=== PATIENT | female | born 1975 | race Caucasian/White ===

== ENCOUNTER 2020-11-11 22:43 | Emergency (ER) | payer SELFPAY ==
[2020-11-11 23:25] LABS: #Basophils 0.1 thou/uL (0.0-0.2); #Eosinphils 0.1 thou/uL (0.0-0.7); #Lymphocytes 2.5 thou/uL (1.20-3.40); #Neutrophils 9.8 thou/uL (1.40-6.50); %Basophils 0.4 % (0.0-1.0); %Lymphocytes 18.7 % (21.0-51.0); %Monocytes 7.7 % (0.0-10.0); %Neutrophils 72.3 % (42.0-75.0); Hemoglobin 13.5 g/dL (12.0-16.0); Mean Corpuscular HGB CONC 33.8 g/dL (32.0-36.0); Mean Corpuscular Hemoglobin 32.5 pg (27.0-31.0); Mean Corpuscular Volume 96.2 fL (78.0-98.0); Mean Platelet Volume 7.3 fL (7.4-10.4); Platelet Count 324 thou/uL (130-400); RBC Distribution Width 11.9 % (11.5-14.5); Red Blood Cell (RBC) Count 4.15 mill/uL (4.20-5.40); White Blood Cell (WBC) Count 13.6 thou/uL (4.8-10.8)
[2020-11-11 23:41] LABS: ALT (SGPT) 48 U/L (8-55); AST (SGOT) 67 U/L (5-34); Albumin 4.3 g/dL (3.5-5.0); Alkaline Phosphatase 98 U/L (40-110); Anion Gap 13 mmol/L (10-20); BUN (Urea Nitrogen) 10 mg/dL (7.0-18.7); Bilirubin, Total 0.2 mg/dL (0.2-1.2); Calc. Creatinine Clearance 0 mL/min (70-130); Calcium 9.6 mg/dL (7.8-10.44); Carbon Dioxide 23 mmol/L (22-29); Chloride 103 mmol/L (98-107); Globulin 3.9 g/dL (2.4-3.5); Glucose 118 mg/dL (70-105); Potassium 4.1 mmol/L (3.5-5.1); Protein, Total 8.2 g/dL (6.0-8.3); Sodium 135 mmol/L (136-145)
[2020-11-12] MEDS ORDERED: Ketorolac Tromethamine 30 MG/ML VIAL ONE (00:07)
[2020-11-12 14:27] LABS: SARS-CoV-2 PCR by NAA Not Detected (NotDetected)
== END 2020-11-12 02:20 | disposition home or self-care (01) ==
LOC: ERS 22:43
DX: B34.9 Viral infection, unspecified (principal); Z20.822 Contact with and (suspected) exposure to COVID-19; R07.89 Other chest pain
CPT/HCPCS: 36415; 71045; 80053; 83880; 84484; 85025; 87635; 93005; 96374; J1885; U0003; U0005

== ENCOUNTER 2022-05-30 14:24 | Outpatient (CLI) | payer BC | END 2022-05-30 14:25 | disposition home or self-care (01) | LOC: CTENTCT 14:24 | PROVIDERS: ATTEND Specialist | DX: J32.9 Chronic sinusitis, unspecified (principal) | CPT/HCPCS: 70486 ==

== ENCOUNTER 2022-06-19 15:58 | Outpatient (CLI) | payer BC | END 2022-06-19 15:59 | disposition home or self-care (01) | LOC: LABBT 15:58 | PROVIDERS: ATTEND Specialist | DX: Z01.812 Encounter for preprocedural laboratory examination (principal) | CPT/HCPCS: 85014 ==

== ENCOUNTER 2022-06-21 11:36 | Day surgery (SDC) | payer BC ==
[2022-06-20 12:18] VITALS: BMI 27.1
[2022-06-21] MEDS ORDERED: Oxymetazoline HCl 0.05% (30 ML BOT) ONE ×2 (12:32→13:55)
[2022-06-21] MEDS ORDERED: Lidocaine 1% MPF 2 ML VIAL ONE (12:32)
[2022-06-21] MEDS ORDERED: EPINEPHrine 1 MG/ML AMP ONE (13:54)
[2022-06-21] MEDS ORDERED: Lidocaine 1% (PF) 30 ML VIAL ONE (13:54)
[2022-06-21] MEDS ORDERED: Fentanyl 100 MCG/2 ML VIAL ONE ×3 (13:54→16:11)
[2022-06-21] MEDS ORDERED: Bacitracin Zinc Ointment 30 gm TUBE ONE (13:55)
[2022-06-21] MEDS ORDERED: SUGAMMADEX SODIUM 200 MG/2 ML VIAL ONE (13:58)
[2022-06-21] MEDS ORDERED: Ferric Subsulfate (ASTRINGYN) 8 GM VIAL ONE (13:59)
[2022-06-21] MEDS ORDERED: Rocuronium Bromide 10 MG/ML (10ML VIAL) ONE (14:37)
[2022-06-21] MEDS ORDERED: PROPOFOL 200 MG/20 ML VIAL ONE (14:37)
[2022-06-21] MEDS ORDERED: Ondansetron PF 4 MG/2 ML Vial ONE ×2 (14:37→17:15)
[2022-06-21] MEDS ORDERED: Lidocaine 1% PF 5 ML VIAL ONE (14:37)
[2022-06-21] MEDS ORDERED: PHENYLEPHRINE-NS 100 MCG/ML 10 ML SYRINGE ONE (14:37)
[2022-06-21] MEDS ORDERED: Dexamethasone 20 MG/5 ML VIAL ONE (14:37)
[2022-06-21] MEDS ORDERED: methylPREDNISolone Acetate 40 mg/ml Vial ONE (14:50)
== END 2022-06-21 18:37 | disposition home or self-care (01) ==
LOC: SDC 11:36
PROVIDERS: ATTEND Specialist
PROC: 099Q8ZZ Drainage of Right Maxillary Sinus, Via Natural or Artificial Opening Endoscopic (ICD-10-PCS; principal; 2022-06-21)
PROC: 099T8ZZ Drainage of Left Frontal Sinus, Via Natural or Artificial Opening Endoscopic (ICD-10-PCS; principal; 2022-06-21)
PROC: 09SM0ZZ Reposition Nasal Septum, Open Approach (ICD-10-PCS; principal; 2022-06-21)
PROC: 0CTPXZZ Resection of Tonsils, External Approach (ICD-10-PCS; principal; 2022-06-21)
PROC: 09TV8ZZ Resection of Left Ethmoid Sinus, Via Natural or Artificial Opening Endoscopic (ICD-10-PCS; principal; 2022-06-21)
PROC: 09SL8ZZ Reposition Nasal Turbinate, Via Natural or Artificial Opening Endoscopic (ICD-10-PCS; principal; 2022-06-21)
PROC: 099X8ZZ Drainage of Left Sphenoid Sinus, Via Natural or Artificial Opening Endoscopic (ICD-10-PCS; principal; 2022-06-21)
PROC: 09TU8ZZ Resection of Right Ethmoid Sinus, Via Natural or Artificial Opening Endoscopic (ICD-10-PCS; principal; 2022-06-21)
PROC: 099W8ZZ Drainage of Right Sphenoid Sinus, Via Natural or Artificial Opening Endoscopic (ICD-10-PCS; principal; 2022-06-21)
PROC: 099S8ZZ Drainage of Right Frontal Sinus, Via Natural or Artificial Opening Endoscopic (ICD-10-PCS; principal; 2022-06-21)
PROC: 099R8ZZ Drainage of Left Maxillary Sinus, Via Natural or Artificial Opening Endoscopic (ICD-10-PCS; principal; 2022-06-21)
DX: J32.0 Chronic maxillary sinusitis (principal); J34.2 Deviated nasal septum; J34.3 Hypertrophy of nasal turbinates; J03.91 Acute recurrent tonsillitis, unspecified; J35.01 Chronic tonsillitis; G89.29 Other chronic pain; R05.3 Chronic cough; R51.9 Headache, unspecified; G47.33 Obstructive sleep apnea (adult) (pediatric); J30.2 Other seasonal allergic rhinitis; E78.00 Pure hypercholesterolemia, unspecified; E06.3 Autoimmune thyroiditis; Z79.899 Other long term (current) drug therapy
CPT/HCPCS: 88304; J0171; J1030; J1100; J2001; J2405; J2704; J3010